=== PATIENT | male | born 1990 | race Two or more races ===

== ENCOUNTER → 2017-09-02 | Outpatient (CLI) | payer OTHER | LOC: M SMT 10:02 | PROVIDERS: ATTEND Nurse Practitioner Family | DX: N50.9 Disorder of male genital organs, unspecified (principal) ==

== ENCOUNTER → 2017-11-25 | Outpatient (CLI) | payer OTHER | LOC: M RAD 17:02 | DX: N50.9 Disorder of male genital organs, unspecified (principal) | CPT/HCPCS: 76870 ==

== ENCOUNTER → 2023-01-10 | Outpatient (CLI) | payer BC | LOC: M RAD 10:15 | PROVIDERS: ATTEND Physician Assistant Medical | DX: H72.03 Central perforation of tympanic membrane, bilateral (principal) ==

== ENCOUNTER → 2023-07-10 | Outpatient (REF) | payer BC ==
[2023-07-10 10:37] LABS: SEMEN APPEARANCE OPAQUE (OPAQUE); SEMEN VISCOSITY LIQUID (LIQUID); SEMEN VOLUME 7.5 ml (2.0-5.0); SEMEN pH 7.5 (7.0-8.0); SPERM CONCENTRATION 33.4 M/ml (>=15.0); WBC CONCENTRATION <=1 M/ml (<=1 M/ml)
== END ==
LOC: M SFHCWAGY 09:11
PROVIDERS: ATTEND Obstetrics & Gynecology
DX: N46.9 Male infertility, unspecified (principal)